=== PATIENT | female | born 1960 | race Caucasian/White ===

== ENCOUNTER → 2024-05-08 06:41 | Outpatient (REF) | payer BC, SELFPAY | LOC: WDC 06:41 | PROVIDERS: ATTENDING PHYSICIAN Nurse Practitioner | DX: Z12.31 Encounter for screening mammogram for malignant neoplasm of breast (principal) | CPT/HCPCS: 77063; 77067 ==

== ENCOUNTER → 2025-06-08 16:46 | Outpatient (REF) | payer BC, SELFPAY ==
[2025-06-08 17:49] LABS: Blood Urea Nitrogen 16 mg/dl (7-17); Calcium 9.9 mg/dl (8.4-10.2); Carbon Dioxide 30 mmol/L (22-30); Chloride 102 mmol/L (98-107); Glucose 85 mg/dl (70-99); Potassium 4.7 mmol/L (3.5-5.1); Sodium 137 mmol/L (135-145); eGFR > 60.00
== END ==
LOC: REG 16:46
PROVIDERS: ATTENDING PHYSICIAN Internal Medicine
DX: R10.9 Unspecified abdominal pain (principal)
CPT/HCPCS: 36415; 80048

== ENCOUNTER → 2025-06-09 13:50 | Outpatient (REF) | payer BC, SELFPAY | LOC: RAD 13:50 | PROVIDERS: ATTENDING PHYSICIAN Internal Medicine | DX: R10.9 Unspecified abdominal pain (principal) | CPT/HCPCS: 74177; Q9967 ==

== ENCOUNTER → 2025-06-24 11:59 | Outpatient (REF) | payer BC, SELFPAY | LOC: MRI 3T 11:59 | PROVIDERS: ATTENDING PHYSICIAN Internal Medicine | DX: E27.8 Other specified disorders of adrenal gland (principal) | CPT/HCPCS: 74181 ==